=== PATIENT | male | born 1970 | race Caucasian/White ===

== ENCOUNTER 2016-09-24 11:33 | Outpatient (CLI) | payer OTHER ==
[2016-09-24 12:28] LABS: Hemoglobin A1c 7.8 % (4.0-6.0)
[2016-09-24 12:41] LABS: Anion Gap 18 mmol/L (10-20); BUN (Urea Nitrogen) 12 mg/dL (8.9-20.6); Calc. Creatinine Clearance 0 mL/min (70-130); Calcium 10.1 mg/dL (7.8-10.44); Carbon Dioxide 23 mmol/L (22-29); Chloride 102 mmol/L (98-107); Estimated GFR-MDRD Greater than 90; LDL Cholesterol, Calculated 112 mg/dL
== END 2016-09-24 11:34 | disposition home or self-care (01) ==
LOC: NAVSJIPCSP 11:33
PROVIDERS: ATTEND Internal Medicine
DX: E11.9 Type 2 diabetes mellitus without complications (principal); I87.2 Venous insufficiency (chronic) (peripheral); E78.5 Hyperlipidemia, unspecified
CPT/HCPCS: 36415; 80048; 80061; 83036

== ENCOUNTER 2016-12-25 10:01 | Outpatient (CLI) | payer OTHER ==
[2016-12-25 12:34] LABS: Hemoglobin A1c 7.4 % (4.0-6.0)
[2016-12-25 13:33] LABS: Cardiac Risk 6.2 (Less than 4.5)
== END 2016-12-25 10:02 | disposition home or self-care (01) ==
LOC: NAVSJIPCSP 10:01
PROVIDERS: ATTEND Internal Medicine
DX: E78.5 Hyperlipidemia, unspecified (principal); E11.9 Type 2 diabetes mellitus without complications
CPT/HCPCS: 36415; 80061; 83036

== ENCOUNTER 2017-03-28 09:26 | Outpatient (CLI) | payer OTHER ==
[2017-03-28 12:38] LABS: Hemoglobin A1c 6.5 % (4.0-6.0)
== END 2017-03-28 09:27 | disposition home or self-care (01) ==
LOC: NAVSJIPCSP 09:26
PROVIDERS: ATTEND Internal Medicine
DX: E78.5 Hyperlipidemia, unspecified (principal); E11.9 Type 2 diabetes mellitus without complications
CPT/HCPCS: 36415; 80061; 83036